=== PATIENT | male | born 1990 | race Caucasian/White ===

== ENCOUNTER 2019-07-07 12:00 | Emergency (ER) | payer MEDICAID ==
[2019-07-07] MEDS: LIDOCAINE/MYLANTA 40 ML BTL PO (13:46)
[2019-07-07] MEDS: DICYCLOMINE 10 MG CAP PO (13:47)
== END 2019-07-07 14:39 | disposition home or self-care (01) ==
LOC: FTE 12:00
DX: K21.9 Gastro-esophageal reflux disease without esophagitis (principal); F17.210 Nicotine dependence, cigarettes, uncomplicated; R05 Cough; K64.8 Other hemorrhoids
CPT/HCPCS: 99283; Z7502